=== PATIENT | female | born 1990 | race Caucasian/White ===

== ENCOUNTER 2018-05-04 19:20 | Observation (INO) | payer MEDICAID ==
--- NOTE | 2018-05-04 19:35 | EDPHY ---
H & P Stated Complaint: Back cramps, leg cramps, generalized redness on body and face Time Seen by Provider: 05/04/18 19:34 - Personal History LMP (Females 10-55): Current Tetanus Diphtheria and Acellular Pertussis (TDAP): Yes Tetanus Vaccine Date: 2017 - Medical/Surgical History Hx Asthma: No Hx Chronic Respiratory Disease: No Hx Diabetes: No Hx Cardiac Disease: No Hx Renal Disease: No Hx Cirrhosis: No Hx Alcoholism: No Hx HIV/AIDS: No Hx Splenectomy or Spleen Trauma: No Other PMH: Opiate recovery, Hep C, Depression, Anxiety - Social History Smoking Status: Current some day smoker Constitutional: Initial Vital Signs Temperature (C) 36.8 C 05/04/18 19:28 Heart Rate 109 H 05/04/18 19:28 Respiratory Rate 18 05/04/18 19:28 Blood Pressure 130/95 H 05/04/18 19:28 O2 Sat (%) 95 05/04/18 19:28 O2 Delivery Mode Room Air Allergies/Adverse Reactions: No Known Allergies Allergy (Unverified 05/04/18 20:42) Home Medications: Medication Instructions Recorded Fiorinal 50-325-40 mg Cap 1 cap PO PRN PRN 05/04/18 Phenergan 25 mg PO Q4H PRN 05/04/18 1 tab PO DAILY 05/04/18 Seroquel 25 mg pe PO HS PRN 05/04/18 Wellbutrin Sr 150 mg PO DAILY 05/04/18 Medical Decision Making ED Course/Re-evaluation: CHIEF COMPLAINT: Skin redness, anxiety HISTORY OF PRESENT ILLNESS: The patient is a 37-week 28 y/o female in opiate recovery with a history of anxiety complaining of skin redness and concern for allergic reaction. She first noticed leg cramping earlier today and began to feel anxious. Symptoms did not improve with drinking water so she opted to go on a walk. When she got back from the walk her face looked red to her in the mirror so she became very concerned she was having an allergic reaction and her anxiety worsened. She denies hives, pruritus, facial swelling, difficulty breathing, difficulty swallowing, fever, urinary symptoms. vomiting. She has a prior history of a Lamictal rash, but no other known allergies. She's had abdominal cramping for several days as well and reports the baby has felt normally active throughout these symptoms. She also mentions that she thinks she may have accidentally taken two doses of 300mg Wellbutrin pills instead of her new dose of 100mg pills. REVIEW OF SYSTEMS: A comprehensive 10 system review of systems is otherwise negative aside from elements mentioned in the history of present illness and medical decision making. PHYSICAL EXAM: HR, BP, O2 Sat, RR. Temp noted General Appearance: Alert, well hydrated, appropriate, and anxious-appearing. Head: Atraumatic without scalp tenderness or obvious injury Eyes: Pupils equal, round, reactive to light and accommodation, EOMI, no trauma , no injection. Nose: Atraumatic, no rhinorrhea, clear. Throat: Mucus membranes moist. Neck: Supple, nontender, no lymphadenopathy. Respiratory: No retractions, no distress, no wheezes, and no accessory muscle use. Lungs are clear to auscultation bilaterally. Cardiovascular: Regular rate and rhythm, no murmurs, rubs, or gallops. Good capillary refill all extremities. Gastrointestinal: Abdomen is soft, nontender, gravid uterus, no masses, no rebound, no guarding, no peritoneal signs. Musculoskeletal: Normal active ROM of all extremities, atraumatic. Neurological: Alert, appropriate, and interactive. The patient has non-focal cranial nerves, motor, sensory, and cerebellar exam. Jittery, unable to sit still. Skin: No rashes, good turgor, no nodules on palpation. Past medical history: Opiate recovery - Subutex, hepatitis C, depression - Wellbutrin, anxiety - Fioricet Past surgical history: Noncontributory Family history: Noncontributory Social history: Lives in [place]. Not employed. Single. DIAGNOSTICS/PROCEDURES/CRITICAL CARE TIME: Tomography performed upstairs with L&D. DIFFERENTIAL DIAGNOSIS: The differential diagnosis for the patient's symptoms included but was not limited to anxiety, substance use, allergic reaction, infectious process, electrolyte abnormality, neurologic process, anemia, cardiac process, and intoxicants. MEDICAL DECISION MAKING: This is an anxious-appearing 37-week 28 y/o female who presents with concern for an allergic reaction after she noticed flushing in the mirror this afternoon. She is jittery and seems unable to lie still during assessment, but otherwise has an unremarkable exam. Suspect symptoms are most likely anxiety driven. She was mildly tachycardic in triage and her BP was elevated somewhat at 130/95. I think this is more likely due to her anxiety than preeclampsia. Will treat with 1mg PO Ativan and continue to follow. L&D floor will repeat BP in a few hours after completing US to determine if she meets criteria for preeclampsia treatment. ISTAT and UA ordered. Labs unremarkable. Patient will be discharged to L&D for tomography and follow up on her BP. - Data Points Laboratory Results: 05/04/18 05/04/18 20:10 19:53 POC Hgb 12.9 gm/dL gm/dL (12.6-16.3) POC Hct 38 % % (38-47) POC Sodium 139 mEq/L mEq/L (135-145) POC Potassium 3.6 mEq/L mEq/L (3.3-5.0) POC Chloride 106 mEq/L mEq/L (97-110) POC BUN 10 mg/dL mg/dL (7-23) POC Creatinine 0.9 mg/dL mg/dL (0.6-1.0) POC Glucose 94 mg/dL mg/dL (70-100) Urine Color YELLOW Urine Appearance CLEAR Urine pH 6.0 (5.0-7.5) Ur Specific Polk 1.018 (1.002-1.030) Urine Protein NEGATIVE (NEGATIVE) Urine Ketones NEGATIVE (NEGATIVE) Urine Blood NEGATIVE (NEGATIVE) Urine Nitrate NEGATIVE (NEGATIVE) Urine Bilirubin NEGATIVE (NEGATIVE) Urine Urobilinogen NEGATIVE EU EU (0.2-1.0) Ur Leukocyte Esterase TRACE H (NEGATIVE) Urine RBC 1-3 /hpf /hpf (0-3) Urine WBC 1-3 /hpf /hpf (0-3) Ur Epithelial Cells TRACE /lpf /lpf (NONE-1+) Urine Bacteria TRACE /hpf H /hpf (NONE SEEN) Urine Glucose NEGATIVE (NEGATIVE) Medications Given: Discontinued Medications Lorazepam (Ativan) 1 mg PO EDNOW ONE Stop: 05/04/18 19:43 Last Admin: 05/04/18 19:48 Dose: 1 mg Point of Care Test Results: Chemistry 05/04/18 19:53 POC Sodium 139 mEq/L mEq/L (135-145) POC Potassium 3.6 mEq/L mEq/L (3.3-5.0) POC Chloride 106 mEq/L mEq/L (97-110) POC BUN 10 mg/dL mg/dL (7-23) POC Creatinine 0.9 mg/dL mg/dL (0.6-1.0) POC Glucose 94 mg/dL mg/dL (70-100) ISTAT H&H 05/04/18 19:53 POC Hgb 12.9 gm/dL gm/dL (12.6-16.3) POC Hct 38 % % (38-47) Departure - Departure Disposition: Home, Routine, Self-Care Clinical Impression: Anxiety Condition: Good Instructions: [facility]/L&D Antepartum Care Instructions, Anxiety (ED) Additional Instructions: Follow up with your OBGYN this week. Return for worsening of condition. CONTINUE TO DRINK 3 LITERS OF WATER DAILY. REST NEEDED. CALL OB WITH CONCERNS /QUESTIONS. FOLLOW UP W/ OB DOCTOR TOMORROW. SUGGESTIONS FOR MENTAL HEALTH: ASK OB ABOUT REFERRALS WITHIN [facility] (KEEP TRYING TO GET SEEN) [facility] (DR CHISHOLM SUGGESTED CALLING HERE) Referrals: Matilde Walls MD [Medical Doctor] - As per Instructions Report Scribed for: Palmer Hollingsworth Report Scribed by: Corina Good Date of Report: 05/04/18 Time of Report: 20:30
[2018-05-04] MEDS ORDERED: LORazepam 1 MG TAB PO ONE (19:42)
[2018-05-04 19:58] VITALS: BP 133/82
--- NOTE | 2018-05-05 03:58 | OBPROG ---
Labor Progress Note Assessment/Plan: Assessment: IUP at 36+wks decreased FM reported to ER, was evaluated in ER for rash sent to Labor and Delivery Plan: reactive NST and better FM after IV hydration,DC home 05/05/18 03:52 Subjective/Intrapartum Course: 05/05/18 03:54 Per RN, Pt anxious after busy day with active hike, baby shower, dehydration with feeling exhausted with increased cramping, SOB, emesis, headache. all symptoms improved after relaxation and oral hydration. Objective: Temp Pulse Resp BP Pulse Ox 36.8 C 93 18 133/82 H 93 05/04/18 19:28 05/04/18 19:58 05/04/18 19:58 05/04/18 19:58 05/04/18 19:58 - SVE Membranes: Intact - Contraction Pattern Assessment Current Contraction Pattern: Other (Specify) (occas) - FHR Assessment Wagoner FHR (bpm): 130 FHR Pattern Variability: Moderate FHR Category: 1 (reactive NST with accels, GBTBV, no decels) ICD10 Worksheet Patient Problems: Problems Problem Status Onset Anxiety Acute Decreased movement Acute - ICD10 Problem Qualifiers (1) Decreased movement
== END 2018-05-04 21:59 | disposition home or self-care (01) ==
LOC: FLD 20:20
PROVIDERS: ADMIT Obstetrics & Gynecology; ATTEND Obstetrics & Gynecology
DX: O99.89 Other specified diseases and conditions complicating pregnancy, childbirth and the puerperium (principal); F41.9 Anxiety disorder, unspecified; R21 Rash and other nonspecific skin eruption; Z3A.37 37 weeks gestation of pregnancy
CPT/HCPCS: 82435-PO; 82565-PO; 82947-PO; 84132-PO; 84295-PO; 84520-PO; 85014-ER

== ENCOUNTER → 2018-05-12 | Outpatient (CLI) | payer MEDICAID | LOC: FIMAGING 13:45 | PROVIDERS: ATTEND Obstetrics & Gynecology | DX: O98.413 Viral hepatitis complicating pregnancy, third trimester (principal); O99.323 Drug use complicating pregnancy, third trimester; B19.20 Unspecified viral hepatitis C without hepatic coma; F11.20 Opioid dependence, uncomplicated; Z3A.37 37 weeks gestation of pregnancy ==

== ENCOUNTER 2018-05-16 16:49 | Inpatient (IN) | payer MEDICAID ==
[2018-05-16 18:21] LABS: PLATELET COUNT 181 10^3/uL (150-400)
[2018-05-16] MEDS ORDERED: LORazepam 2 MG/ML INJ IVP PRN (18:57)
[2018-05-16] MEDS ORDERED: LORazepam 2 MG/ML INJ IVP ONE (19:15)
[2018-05-16] MEDS ORDERED: EPSOM SALT 454 GM TP PRN (19:23)
[2018-05-16] MEDS ORDERED: MISOPROSTOL 200 MCG TAB PR PRN (19:23)
[2018-05-16] MEDS ORDERED: OXYTOCIN/RINGERS LACTATE 1,000 ML IV PRN (19:23)
[2018-05-16] MEDS ORDERED: IBUPROFEN 600 MG TAB PO PRN (19:23)
[2018-05-16] MEDS ORDERED: LR 1,000 ML IV PRN (19:23)
[2018-05-16] MEDS ORDERED: LIDOCAINE 1% 300 MG/30 ML SDV SC PRN (19:23)
[2018-05-16] MEDS ORDERED: OLIVE OIL 118 ML BTL MISC PRN (19:23)
[2018-05-16] MEDS ORDERED: DINOPROSTONE 10 MG VAG SUPP VG ONE (21:40)
[2018-05-16] MEDS: ZOLPIDEM TARTRATE 5 MG TAB PO PRN ×2 (22:14→23:05)
[2018-05-16] MEDS ORDERED: CALCIUM CARBONATE 500 MG CHEWABLE TAB PO PRN (22:17)
--- NOTE | 2018-05-16 23:11 | GHP ---
[f rep st] PREOP HISTORY AND PHYSICAL DATE OF ADMISSION: 05/16/2018 ADMITTING DIAGNOSIS: Intrauterine at 38 and 2/7 weeks' gestation with preeclampsia. HISTORY OF PRESENT ILLNESS: The patient is a 27-year-old 1, para 0, who is at 38 and 2/7 wee ks' gestation with an EDC of 05/28/2018. She presented to Labor and Delivery complaining of severe a nxiety and elevated blood pressure. She complained of headaches earlier today and some episodes of b lurred vision and spots in her vision. She has Fioricet, and she took the Fioricet earlier today. S he said her headache improved, but she continued to have severe anxiety and panic attack symptoms. S he has a blood pressure cuff at home and took her blood pressure, and it was in the 150s over 100 ran ge. She is not sure of the accuracy of that blood pressure cuff, but she was very concerned about th e health of her baby and what was going on. She presented to Labor and Delivery. Patient has had so me care with [facility], Dr. Walls; however, she was a late transfer there. She reports that her first trimester care was in [place], where she was living. She has a history of polys ubstance abuse, was in recovery, had a remission in January of 2018 with both methamphetamine as well as opioids and was admitted to an inpatient detox facility in [place]. She had her care there. Was started on Subutex as well as antidepressants and has stayed away from drugs since January. She was discharged from the inpatient rehab facility and established care at [facility]. She is living at [facility] and started her care with [facility]. She is on gabapentin 600 mg 3 felisha es daily, Subutex 800 mg sublingual daily, as well as Wellbutrin 200 mg daily, and Seroquel p.r.n. sl eep. She feels that the Wellbutrin is making her incredibly anxious and manic. She is unable to sit still, unable to calm down, and has been unable to sleep for the past 4 nights. She says she is exh austed but very anxious. She feels that her elevated blood pressure is as a result of her anxiety an d her difficulties with the Wellbutrin. The patient's is also complicated by hepatitis C w ith an unknown viral load. PAST OBSTETRICAL HISTORY: This is her first . PAST GYNECOLOGICAL HISTORY: None significant that she admits to. Last menstrual period was 08/22/19 18. EDC is 05/28/2018, confirmed by a 32 week ultrasound on file here. We do not have her records [facility]. PAST MEDICAL HISTORY: Significant for hepatitis C, significant depression and anxiety, and meth and opioid use. PAST SURGICAL HISTORY: No significant surgical history. SOCIAL HISTORY: Father of the baby is not involved. She says that he also is a drug user. She admi ts to vaping tobacco. No alcohol or drug use since her relapse in January. She is currently on Subu alejandro and has frequent drug screen monitoring. She had a level [address] Jeong on 05/12/2018. Baby was 37 weeks and 5 days, measuring 3306 g or 62nd percentile. Anatomy was normal but often was suboptimal. Baby cephalic. MVP was 7. 8. Ovaries are normal. OBJECTIVE: VITAL SIGNS: Her blood pressures were 130s to 150s over 70s to 99. Majority of her bloo d pressures were 130s over 80s. GENERAL: She is a well-developed, gravid female, very anxious, in m ild distress because of her anxiety but no pain. CHEST: Clear to auscultation bilaterally. HEART: Regular rate and rhythm, no murmur. ABDOMEN: Gravid, nontender. OB: heart tones are 130s, reactive, moderate variability, category 1. She is val irregularly. Cervix is closed, 80%, -2. Baby is cephalic. LABS: White blood cell count is 12.02, hemoglobin 13.3, hematocrit 38, platelets 181. BUN 13, creat inine 0.7, uric acid 5.3, AST 40, ALT 33, LDH 697. Her urine creatinine was 24.1, protein 13, giving a P:C ratio of 0.53. Urine tox was positive for barbiturates. The patient does admit to Fioricet u this morning. Her hepatitis C viral load is pending. ASSESSMENT AND PLAN: A 28-year-old 1, para 0, at 38 and 2/7 weeks gestation with hypertensio n, proteinuria, diagnosis of preeclampsia without severe features, and severe anxiety. We will proce ed with induction of labor today. I am going to do cervical ripening with Cervidil, but also, I gave her 1 dose of Ativan to try to calm her down and gave her a dose of p.o. Ambien to help her sleep to night because she has not slept in 4 days. We will reassess her cervical exam in the morning and hop efully start Pitocin. 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 /[id number]/MODL
[2018-05-17] MEDS: GABAPENTIN 400 MG CAP PO SCH ×3 (01:24→16:47)
[2018-05-17] MEDS: ACETAMINOPHEN 500 MG TAB PO PRN ×3 (03:50→21:03)
[2018-05-17] MEDS ORDERED: OLIVE OIL 118 ML BTL ONE (07:35)
[2018-05-17] MEDS ORDERED: AMMONIA AROMATIC 1 EACH AMP IH ONE (07:35)
[2018-05-17] MEDS ORDERED: LIDOCAINE 1% 300 MG/30 ML SDV ONE (07:35)
[2018-05-17] MEDS ORDERED: TERBUTALINE SULFATE 1 MG/ML VIAL ONE (07:35)
[2018-05-17] MEDS ORDERED: OXYTOCIN 10 UNIT/ML VIAL ONE (07:35)
[2018-05-17] MEDS ORDERED: MISOPROSTOL 200 MCG TAB ONE (07:35)
--- NOTE | 2018-05-17 08:39 | OBPROG ---
Labor Progress Note Assessment/Plan: Assessment: 28 G1 at 38w3d, undergoing IOL for preeclampsia without severe features. Currently BPs stable. Hx of polysubstance abuse - meth and opioids most recently - currently on suboxone/ depression / Hep C + [facility] Plan: Cervidil placed about 2200 -will remove 1000 unless reason to remove and check cervix prior to that. Will assess at that time for next step in induction. Caity Zavaleta MD, FACOG [facility] 05/17/18 08:32 Subjective/Intrapartum Course: 05/17/18 08:39 Pt doing well, was able to get some sleep, but is becoming agitated with discomfort of contractions. No LOF, no VB. Currently, no MIKE, epigastric pain, vis changes. Objective: 05/16/18 17:45 05/16/18 17:45 Patient ABO/Rh O POSITIVE 05/16/18 20:09 Uric Acid 5.3 mg/dL (2.5-6.8) 05/16/18 17:45 Total Bilirubin 0.1 mg/dL (0.1-1.4) 05/16/18 17:45 Conjugated Bilirubin 0.1 mg/dL (0.0-0.5) 05/16/18 17:45 Unconjugated Bilirubin 0.0 mg/dL (0.0-1.1) 05/16/18 17:45 AST 40 IU/L (14-46) 05/16/18 17:45 ALT 33 IU/L (9-52) 05/16/18 17:45 Lactate Dehydrogenase 697 IU/L (313-618) H 05/16/18 17:45 gen - pleasant but uncomfortable. - Contraction Pattern Assessment Current Contraction Pattern: Regular (q1-3) - FHR Assessment Wagoner FHR (bpm): 125 FHR Pattern Variability: Moderate FHR Category: 1 - Physical Exam General Appearance: alert, mild distress Oxytocin Orders Assessment - Pre-Induction/Augmentation Assessment Gestational Age: 38 week(s) and 2 day(s) ICD10 Worksheet Patient Problems: Problems Problem Status Onset Preeclampsia Acute Anxiety Acute Decreased movement Acute - ICD10 Problem Qualifiers (1) Preeclampsia Qualifiers: Trimester: third trimester Qualified Code(s): O14.93 - Unspecified pre- eclampsia, third trimester
[2018-05-17] MEDS: buPROPion XL 150 MG TAB PO SCH (09:04)
[2018-05-17] MEDS ORDERED: BUPRENORPHINE HCL SL SCH (09:45)
[2018-05-17] MEDS ORDERED: fentaNYL 100 MCG/2 ML INJ ONE (11:51)
[2018-05-17] MEDS ORDERED: fentaNYL 2MCG/ML/BUP 0.1% RTU 100 ML BAG EP ONE (11:52)
[2018-05-17] MEDS ORDERED: PHENYLEPHRINE HCL 100 MCG/ML SYR ONE (11:52)
[2018-05-17] MEDS ORDERED: BUPIVACAINE 0.25% 10 ML SDV ONE (11:52)
--- NOTE | 2018-05-17 12:32 | PDANEPAE ---
ANE History of Present Illness near term with some s/s of PIH in early labor requesting epidural. ANE Past Medical History - Cardiovascular History Hx Hypertension: No - Pulmonary History Hx Asthma/Reactive Airway Disease: No Hx Oxygen in Use at Home: No Hx Sleep Apnea: No - Endocrine History Hx Diabetes: No - Neurological & Psychiatric Hx Neurological / Psychiatric History Comment: Hstory of drug abuse - Chronic Pain History Chronic Pain: No ANE Review of Systems Review of Systems: ANE Patient History - Allergies Allergies/Adverse Reactions: No Known Allergies Allergy (Unverified 05/04/18 20:42) - Home Medications Home Medications: Fiorinal 50-325-40 mg Cap 1 cap PO PRN PRN 05/04/18 [Last Taken 04/30/18] Phenergan 25 mg PO Q4H PRN 05/04/18 [Last Taken 05/03/18] 1 tab PO DAILY 05/04/18 [Last Taken 05/04/18 08:00] Seroquel 25 mg pe PO HS PRN 05/04/18 [Last Taken 05/02/18] Wellbutrin Sr 150 mg PO DAILY 05/04/18 [Last Taken 05/04/18 14:00] Buprenorphine HCl 4 mg SL DAILY 05/17/18 [Last Taken Unknown] - Anes Hx Anes Hx: no prior problems (No prior RA) - Smoking Hx Smoking Status: Current some day smoker ANE Labs/Vital Signs - Labs Result Diagrams: 05/16/18 17:45 05/16/18 17:45 - Vital Signs Height: 162.56 cm Weight: 69.853 kg ANE Physical Exam - Airway Neck exam: FROM Mallampati Score: Class 2 Mouth exam: normal dental/mouth exam - Pulmonary Pulmonary: no respiratory distress - Cardiovascular Cardiovascular: regular rate and rhythym - ASA Status ASA Status: II ANE Anesthesia Plan Anesthesia Plan: epidural
--- NOTE | 2018-05-17 12:51 | OBPROG ---
Labor Progress Note Assessment/Plan: Assessment: 28 G1 at 38w3d, undergoing IOL for preeclampsia without severe features. Currently BPs stable. Hx of polysubstance abuse - meth and opioids most recently - currently on suboxone/ depression / Hep C + / [facility] at [facility] Plan: Cervidil placed about 2200 -will remove 1000 unless reason to remove and check cervix prior to that. Will assess at that time for next step in induction. Assumed care from Dr. Vang at 0730. Caity Zavaleta MD, FACOG [facility] 05/17/18 08:32 A/P: 28 G1 at 38w3d 1)undergoing IOL with preeclampsia without severe features. BPs stable, no other symptoms of preeclampsia. Epidural in place now and effective. Cephalic - will start pitocin induction now that pt is comfortable too. 2) Hx of polysubstance abuse, including IV methamphetamine use during this . Has been on suboxone for opiod dependence - today was given only buprenorphine (not with naloxone) so it won't counteract narcotics in epidural. 3) With IV drug abuse this , and the only records available, show one visit and one MFM visit - will repeat panel, including HepB, RPR, HIV. 4) Hep C - viral loads still pending. Normal LFTs. Caity Zavaleta MD, FACOG 05/17/18 12:48 Subjective/Intrapartum Course: 05/17/18 08:39 Pt doing well, was able to get some sleep, but is becoming agitated with discomfort of contractions. No LOF, no VB. Currently, no MIKE, epigastric pain, vis changes. 05/17/18 12:50 Pt much happier now, comfortable with epidural. NO MIKE, no vis changes, no epigastric pain. Objective: 05/16/18 17:45 05/16/18 17:45 Patient ABO/Rh O POSITIVE 05/16/18 20:09 Uric Acid 5.3 mg/dL (2.5-6.8) 05/16/18 17:45 Total Bilirubin 0.1 mg/dL (0.1-1.4) 05/16/18 17:45 Conjugated Bilirubin 0.1 mg/dL (0.0-0.5) 05/16/18 17:45 Unconjugated Bilirubin 0.0 mg/dL (0.0-1.1) 05/16/18 17:45 AST 40 IU/L (14-46) 05/16/18 17:45 ALT 33 IU/L (9-52) 05/16/18 17:45 Lactate Dehydrogenase 697 IU/L (313-618) H 05/16/18 17:45 36.9 96% on RA 64 143/81 (119-143/62-87) abd - gravid, soft NT SSE: cervix appears 2cm long and 1 m open. With sterile technique, transcervical balloon catheter placed with ring forceps - uterine balloon filled with 60ml, vaginal with 20 ml. Pt tolerated procedure well. - SVE Dilation (cm): 1 Effacement (%): 80 Station: -3 Membranes: Intact - Contraction Pattern Assessment Current Contraction Pattern: Regular (q1-3) - FHR Assessment Wagoner FHR (bpm): 125 FHR Pattern Variability: Moderate FHR Category: 1 (transcervical balloon catheter placed) - Procedures Non-surgical Procedures: Other (Specify) (Transcervical Cook balloon catheter placed using a speculum and ring forceps in standard fashion. 60 ml in uterine balloon, 20 ml in vaginal balloon - pt tolerated procedure well. ) Oxytocin Orders Assessment - Pre-Induction/Augmentation Assessment Presentation: Vertex Gestational Age: 38 week(s) and 2 day(s) ICD10 Worksheet Patient Problems: Problems Problem Status Onset Preeclampsia Acute Anxiety Acute Decreased movement Acute - ICD10 Problem Qualifiers (1) Preeclampsia Qualifiers: Trimester: third trimester Qualified Code(s): O14.93 - Unspecified pre- eclampsia, third trimester
[2018-05-17] MEDS ORDERED: LR 500 ML IV SCH (13:00)
[2018-05-17] MEDS ORDERED: fentaNYL 2MCG/ML/BUP 0.1% RTU 100 ML EP SCH (13:00)
[2018-05-17] MEDS ORDERED: LR 500 ML IV PRN (13:01)
[2018-05-17] MEDS ORDERED: BUPRENORPHINE HCL 8 MG SL SCH (13:02)
[2018-05-17] MEDS ORDERED: OXYTOCIN/RINGERS LACTATE 500 ML IV SCH (13:30)
--- NOTE | 2018-05-17 16:57 | OBPROG ---
Labor Progress Note Assessment/Plan: Assessment: 28 G1 at 38w3d, undergoing IOL for preeclampsia without severe features. Currently BPs stable. Hx of polysubstance abuse - meth and opioids most recently - currently on suboxone/ depression / Hep C + / lives at [facility] Plan: Cervidil placed about 2200 -will remove 1000 unless reason to remove and check cervix prior to that. Will assess at that time for next step in induction. Assumed care from Dr. Vang at 0730. Caity Zavaleta MD, FACOG [facility] 05/17/18 08:32 A/P: 28 G1 at 38w3d 1)undergoing IOL with preeclampsia without severe features. BPs stable, no other symptoms of preeclampsia. Epidural in place now and effective. Cephalic - will start pitocin induction now that pt is comfortable too. 2) Hx of polysubstance abuse, including IV methamphetamine use during this . Has been on suboxone for opiod dependence - today was given only buprenorphine (not with naloxone) so it won't counteract narcotics in epidural. 3) With IV drug abuse this , and the only records available, show one visit and one MFM visit - will repeat panel, including HepB, RPR, HIV. 4) Hep C - viral loads still pending. Normal LFTs. Caity Zavaleta MD, FACOG 05/17/18 12:48 A/P: 28 G1 at 38w2d 1) IOL for preeclampsia without severe features. SROM at 1415. BPs not in severe range. Seems to have window in epidural causing LLQ discomfort with contractions. Will attempt position changes to get window covered. 2) Early heart rate decelerations, remote from delivery - Cont IVF, O2, and optimization with position changes. IUPC placed, would prefer to avoid FSE due to Hep C in pt. 3) IV/polysubstance abuse - received buprenophine this morning, HIV, hep B, RPR pending. 4) Hep C - viral loads still pending. 05/17/18 16:46 Subjective/Intrapartum Course: 05/17/18 08:39 Pt doing well, was able to get some sleep, but is becoming agitated with discomfort of contractions. No LOF, no VB. Currently, no MIKE, epigastric pain, vis changes. 05/17/18 12:50 Pt much happier now, comfortable with epidural. NO MIKE, no vis changes, no epigastric pain. 05/17/18 17:06 Pt doing well, though having some high anxiety, as has a window of pain in LLQ currently not covered by epidural. Wants to try some guided meditation. Objective: 05/16/18 17:45 05/16/18 17:45 Patient ABO/Rh O POSITIVE 05/16/18 20:09 Uric Acid 5.3 mg/dL (2.5-6.8) 05/16/18 17:45 Total Bilirubin 0.1 mg/dL (0.1-1.4) 05/16/18 17:45 Conjugated Bilirubin 0.1 mg/dL (0.0-0.5) 05/16/18 17:45 Unconjugated Bilirubin 0.0 mg/dL (0.0-1.1) 05/16/18 17:45 AST 40 IU/L (14-46) 05/16/18 17:45 ALT 33 IU/L (9-52) 05/16/18 17:45 Lactate Dehydrogenase 697 IU/L (313-618) H 05/16/18 17:45 gen - pleasant but anxious appearing. SVE - 3/ 80/ -3 IUPC placed without difficulty. - SVE Dilation (cm): 3 Effacement (%): 80 Station: -3 Membranes: SROM (at 1415) Amniotic Fluid Color: Clear - Contraction Pattern Assessment Current Contraction Pattern: Regular (q1-3) - FHR Assessment Wagoner FHR (bpm): 125 (early heart rate decelerations to 90s) FHR Pattern Variability: Moderate FHR Category: 2 - Procedures Non-surgical Procedures: IUPC, Other (Specify) (Transcervical Cook balloon catheter placed using a speculum and ring forceps in standard fashion. 60 ml in uterine balloon, 20 ml in vaginal balloon - pt tolerated procedure well. ) - AP Antepartum Course: Pt diagnosed with preeclampsia without severe features due to elevated BPs and proteinuria (P/C = 0.539). Induction started at 2200 on 05/16/18 with Cervidil. 05/17/18 - cervidil removed at 1000, 1415 SROM clear fluid 1615 transcervical balloon catheter removed 1635 IUPC placed, early FHR decelerations noted. 02/03/19 17:09 Oxytocin Orders Assessment - Pre-Induction/Augmentation Assessment Presentation: Vertex Gestational Age: 38 week(s) and 2 day(s) ICD10 Worksheet Patient Problems: Problems Problem Status Onset Preeclampsia Acute Anxiety Acute Decreased movement Acute - ICD10 Problem Qualifiers (1) Preeclampsia Qualifiers: Trimester: third trimester Qualified Code(s): O14.93 - Unspecified pre- eclampsia, third trimester
--- NOTE | 2018-05-17 17:56 | OBPROG ---
Labor Progress Note Assessment/Plan: Assessment: 29 G1 at 38w3d, undergoing IOL for preeclampsia without severe features. Currently BPs stable. Hx of polysubstance abuse - meth and opioids most recently - currently on suboxone/ depression / Hep C + / lives at [facility] Plan: Cervidil placed about 2200 -will remove 1000 unless reason to remove and check cervix prior to that. Will assess at that time for next step in induction. Assumed care from Dr. Vang at 0730. Caity Zavaleta MD, FACOG [facility] 05/17/18 08:32 A/P: 29 G1 at 38w3d 1)undergoing IOL with preeclampsia without severe features. BPs stable, no other symptoms of preeclampsia. Epidural in place now and effective. Cephalic - will start pitocin induction now that pt is comfortable too. 2) Hx of polysubstance abuse, including IV methamphetamine use during this . Has been on suboxone for opiod dependence - today was given only buprenorphine (not with naloxone) so it won't counteract narcotics in epidural. 3) With IV drug abuse this , and the only records available, show one visit and one MFM visit - will repeat panel, including HepB, RPR, HIV. 4) Hep C - viral loads still pending. Normal LFTs. Caity Zavaleta MD, FACOG 05/17/18 12:48 A/P: 29 G1 at 38w2d 1) IOL for preeclampsia without severe features. SROM at 1415. BPs not in severe range. Seems to have window in epidural causing LLQ discomfort with contractions. Will attempt position changes to get window covered. 2) Early heart rate decelerations, remote from delivery - Cont IVF, O2, and optimization with position changes. IUPC placed, would prefer to avoid FSE due to Hep C in pt. 3) IV/polysubstance abuse - received buprenophine this morning, HIV, hep B, RPR pending. 4) Hep C - viral loads still pending. 05/17/18 16:46 05/17/18 17:54 A/P: as above, now 9.5 cm. Anticipate vag delivery - will start pushing soon. Caity Zavaleta MD Subjective/Intrapartum Course: 05/17/18 08:39 Pt doing well, was able to get some sleep, but is becoming agitated with discomfort of contractions. No LOF, no VB. Currently, no MIKE, epigastric pain, vis changes. 05/17/18 12:50 Pt much happier now, comfortable with epidural. NO MIKE, no vis changes, no epigastric pain. 05/17/18 17:06 Pt doing well, though having some high anxiety, as has a window of pain in LLQ currently not covered by epidural. Wants to try some guided meditation. 05/17/18 17:54 Pt feeling more pressure. overall better pain control. Objective: 05/16/18 17:45 05/16/18 17:45 Patient ABO/Rh O POSITIVE 05/16/18 20:09 Uric Acid 5.3 mg/dL (2.5-6.8) 05/16/18 17:45 Total Bilirubin 0.1 mg/dL (0.1-1.4) 05/16/18 17:45 Conjugated Bilirubin 0.1 mg/dL (0.0-0.5) 05/16/18 17:45 Unconjugated Bilirubin 0.0 mg/dL (0.0-1.1) 05/16/18 17:45 AST 40 IU/L (14-46) 05/16/18 17:45 ALT 33 IU/L (9-52) 05/16/18 17:45 Lactate Dehydrogenase 697 IU/L (313-618) H 05/16/18 17:45 - SVE Dilation (cm): 9 Effacement (%): 100 Station: 0 Membranes: SROM (at 1415) Amniotic Fluid Color: Clear - Contraction Pattern Assessment Current Contraction Pattern: Regular (q1-3) - FHR Assessment Wagoner FHR (bpm): 115 (. PItocin turned off. ) FHR Pattern Variability: Moderate FHR Category: 2 - Procedures Non-surgical Procedures: IUPC, Other (Specify) (Transcervical Cook balloon catheter placed using a speculum and ring forceps in standard fashion. 60 ml in uterine balloon, 20 ml in vaginal balloon - pt tolerated procedure well. ) - AP Antepartum Course: Pt diagnosed with preeclampsia without severe features due to elevated BPs and proteinuria (P/C = 0.539). Induction started at 2200 on 05/16/18 with Cervidil. 05/17/18 - cervidil removed at 1000, 1415 SROM clear fluid 1615 transcervical balloon catheter removed 1635 IUPC placed, early FHR decelerations noted. 05/17/18 17:09 Oxytocin Orders Assessment - Pre-Induction/Augmentation Assessment Presentation: Vertex Gestational Age: 38 week(s) and 2 day(s) ICD10 Worksheet Patient Problems: Problems Problem Status Onset Preeclampsia Acute Anxiety Acute Decreased movement Acute - ICD10 Problem Qualifiers (1) Preeclampsia Qualifiers: Trimester: third trimester Qualified Code(s): O14.93 - Unspecified pre- eclampsia, third trimester
[2018-05-17] MEDS ORDERED: HYDROCORTISONE 0.5% CREAM TP PRN (21:30)
[2018-05-17] MEDS ORDERED: SIMETHICONE 80 MG TAB CHEW PO PRN (21:30)
--- NOTE | 2018-05-17 21:39 | OBDEL ---
Info Type: Vaginal Presentation at Delivery: Vertex L&D Analgesia/Anesthesia Type: Epidural GBS+: No Intrapartum Medications: Generic Name Dose Route Start Last Admin Trade Name Betty PRN Reason Stop Dose Admin Bupropion HCl 150 mg 05/17/18 09:00 05/17/18 09:04 Wellbutrin Xl PO 11/13/18 08:59 150 mg DAILY LYNNE Administration Calcium Carbonate 500 mg 05/16/18 22:17 05/16/18 23:03 Tums PO 11/12/18 22:16 500 mg TID PRN Administration Indigestion Gabapentin 400 mg 05/16/18 23:00 05/17/18 16:47 Neurontin PO 11/12/18 22:59 Not Given TID LYNNE Oxytocin/Lactated Ringer's 500 mls @ 0 mls/hr 05/17/18 13:30 05/17/18 13:14 Pitocin 30 Units/Lr (Premix) IV 11/13/18 13:29 500 mls CONT LYNNE Administration Protocol Per Protocol Miscellaneous Medication 16 mg 05/17/18 13:02 05/17/18 12:00 Buprenorphine Hcl [Buprenorphine Hcl] SL 11/13/18 09:44 16 mg DAILY LYNNE Administration Cambridge Oil 118 ml 05/16/18 19:23 05/17/18 20:11 Sweet Oil MISC 11/12/18 19:22 1 btl ONCE PRN Administration perineal massage Discontinued Medications Generic Name Dose Route Start Last Admin Trade Name Betty PRN Reason Stop Dose Admin Acetaminophen 1,000 mg 05/16/18 22:17 05/17/18 21:03 Tylenol PO 11/12/18 22:16 1,000 mg Q6HRS PRN Administration Pain, Mild/Fever, Can Take PO Dinoprostone 10 mg 05/16/18 21:40 05/16/18 22:10 Cervidil VG 05/16/18 21:41 10 mg ONCE ONE Administration Oxytocin/Lactated Ringer's 1,000 mls @ 125 mls/hr 05/16/18 19:23 05/17/18 20: 58 Pitocin 20 Units/Lr (Premix) IV 1,000 mls PRN PRN Administration Post bleeding Ibuprofen 600 mg 05/16/18 19:23 05/17/18 21:04 Motrin PO 600 mg ONCE PRN Administration post , pain Lorazepam 1 mg 05/16/18 19:15 05/16/18 20:10 Ativan Injection IVP 05/16/18 19:16 1 mg ONCE ONE Administration Zolpidem Tartrate 5 - 10 mg 05/16/18 18:57 05/16/18 23:05 Ambien PO 11/12/18 18:56 5 mg HS PRN Administration Sleep/Insomnia - Infant Care Provider Chief Hydroelectric Station Operator/SHEET [employer]CT WORKER SUPERVISOR: Dana Pete - Hospital Course Intrapartum: 05/17/18 08:39 Pt doing well, was able to get some sleep, but is becoming agitated with discomfort of contractions. No LOF, no VB. Currently, no MIKE, epigastric pain, vis changes. 05/17/18 12:50 Pt much happier now, comfortable with epidural. NO MIKE, no vis changes, no epigastric pain. 05/17/18 17:06 Pt doing well, though having some high anxiety, as has a window of pain in LLQ currently not covered by epidural. Wants to try some guided meditation. 05/17/18 17:54 Pt feeling more pressure. overall better pain control. Indications for Delivery: Preeclampsia Mild Vaginal Delivery - Delivery Provider Delivery Physician/CNM: Caity Zavaleta - Labor and Delivery Onset of Contractions Date: 05/17/18 Onset of Contractions Time: 16:30 Onset of Contractions Type: Induced Rupture of Membranes Date: 05/17/18 Rupture of Membranes Time: 14:15 Rupture of Membranes Type: Spontaneous Amniotic Fluid Color: Clear Dilation Complete Date: 05/17/18 Dilation Complete Time: 18:28 Placenta Delivery Date: 05/17/18 Placenta Delivery Time: 20:15 Total Hours of Labor: 3 Non-surgical Procedures: IUPC, Other (Specify) (Transcervical Cook balloon catheter placed using a speculum and ring forceps in standard fashion. 60 ml in uterine balloon, 20 ml in vaginal balloon - pt tolerated procedure well. ) Laceration: 1st Degree Repair: 3-0, Vicryl Vaginal Sponge Count Correct: Yes Vaginal Needle Count Correct: Yes Vaginal Sweep Performed: Yes EBL: 250 Delivery Events: None Delivery Comment: Pt complete at 1828 and started pushing shortly after that. Spontaneous vaginal delivery at 2012, over intact perineum, KYLIE. Bulb suctioned on perineum. Easy delivery of body and baby delivered to maternal abdomen. 1 min delay of cord clamping. Cord cut. Placenta delivered at 2014 and appeared intact. 1st deg lac noted and repaired with 3.0 Vicryl. Vaginal sweep performed. Fundus firm with massage and IV pitocin. Sponge and needle counts correct. SHEET METAL DUCT WORKER SUPERVISOR was in attendance for delivery. Pt and left stable in room with RN. - Medications Labor Augmentation/Induction Methods Used: Pitocin, Sanchez Bulb, Cervadil Labor Augmentation/Induction Indication: Other (Specify) (preeclampsia) Data CHERYL: 05/28/18 Gestational Age: 38 week(s) and 3 day(s) Wagoner Delivery Date: 05/17/18 Delivery Time: 20:13 Sex of : Male Score (1 Min): 8 Score (5 Min): 9 ICD10 Worksheet Patient Problems: Problems Problem Status Onset Preeclampsia Acute Anxiety Acute Decreased movement Acute - ICD10 Problem Qualifiers (1) Preeclampsia Qualifiers: Trimester: third trimester Qualified Code(s): O14.93 - Unspecified pre- eclampsia, third trimester
[2018-05-17] MEDS ORDERED: METHYL SALICYLATE/MENTHOL OINTMENT TP PRN (23:01)
[2018-05-18] MEDS: GABAPENTIN 400 MG CAP PO SCH ×3 (01:08→16:30)
[2018-05-18 02:53] LABS: HEPATITIS B SURFACE ANTIGEN NEGATIVE (NEGATIVE)
[2018-05-18] MEDS: ACETAMINOPHEN 500 MG TAB PO PRN ×2 (05:12→14:10)
[2018-05-18] MEDS: IBUPROFEN 600 MG TAB PO PRN ×3 (05:12→18:14)
--- NOTE | 2018-05-18 09:11 | OBPP ---
Progress Note Assessment/Plan: Assessment: PPd1 s/p Pain well controlled - home dose of Suboxone restarted this AM (28/07) Awaiting Hep C viral load and serum STD screening Social work following - appreciate assistance on placement and resources. GBS neg, Rh pos, Rubella immune Told her I was comfortable ordering Ativan PRN for now, and Fioricet. Discussed that SSRI's probably a safer choice, but she reported she's had very bad reactions to many and is not comfortable starting a new med at this time. Conitnuing Wellbutrin. for now. Likely home tomorrow ZAIRA 05/18/18 21:57 Subjective/ Course: Sweta was quite upset and anxious, almost frantic when I spoke with her this AM. She reported that her pain was generally doing fine, baby was doing well - BF going well. She just in general was feeling very overwhelmed and anxious -- very worried about managing her anxiety in the coming weeks. Requesting Ativan PRN, and Fioricet. Objective: 05/18/18 05:25 05/16/18 17:45 Patient ABO/Rh O POSITIVE 05/16/18 20:09 Uric Acid 5.3 mg/dL (2.5-6.8) 05/16/18 17:45 Total Bilirubin 0.1 mg/dL (0.1-1.4) 05/16/18 17:45 Conjugated Bilirubin 0.1 mg/dL (0.0-0.5) 05/16/18 17:45 Unconjugated Bilirubin 0.0 mg/dL (0.0-1.1) 05/16/18 17:45 AST 40 IU/L (14-46) 05/16/18 17:45 ALT 33 IU/L (9-52) 05/16/18 17:45 Lactate Dehydrogenase 697 IU/L (313-618) H 05/16/18 17:45 Temp Pulse Resp BP Pulse Ox 36.8 C 67 16 115/57 L 95 05/18/18 08:00 05/18/18 08:00 05/18/18 08:00 05/18/18 08:00 05/18/18 08:00 Uterine Position/Fundal Height: At Umbilicus Uterine Tone: Firm
[2018-05-18] MEDS: buPROPion XL 150 MG TAB PO SCH (09:43)
[2018-05-18] MEDS: DOCUSATE SODIUM 100 MG CAP PO PRN ×2 (09:43→22:01)
[2018-05-18] MEDS: LORazepam 0.5 MG TAB PO PRN ×4 (13:16→22:01)
[2018-05-18] MEDS: ACET/CAFFEINE/BUTA FIORICET 1 EACH TAB PO PRN ×2 (16:31→22:01)
--- NOTE | 2018-05-18 16:31 | ASMTCMCOM ---
CM Note CM Note Notes: Patient is a new mother with a history of substance abuse living at [facility] here in [place]. [place] and was in fact speaking with her mother as this CM entered the room. The patient has the on her chest and appears to be bonding well. Spoke with the patient's nurse who reports patient quick to become upset at the cries of . She verbalizes she does not know what to do and is concerned that the infant isn't latching on appropriately just yet. The patient has a great deal of support through the [facility]. She has appointments set up with [facility]. Patient provided with a resource list for depression treatment providers. CM will also reach out to [facility]. CM to follow. Likely to discharge tomorrow. Plan: Dc to [facility] when medically cleared. Date Signed: 05/18/2018 04:30 PM Electronically Signed By:Nicole Mccain RN
[2018-05-19] MEDS: GABAPENTIN 400 MG CAP PO SCH ×2 (03:20→11:23)
[2018-05-19] MEDS: LORazepam 0.5 MG TAB PO PRN ×2 (03:55→10:14)
[2018-05-19] MEDS: buPROPion XL 150 MG TAB PO SCH (07:49)
[2018-05-19] MEDS: ACET/CAFFEINE/BUTA FIORICET 1 EACH TAB PO PRN (07:49)
[2018-05-19] MEDS ORDERED: BUPRENORPHINE HCL SL SCH (09:00)
--- NOTE | 2018-05-19 10:56 | OBPP ---
Progress Note Assessment/Plan: Assessment: 1) s/p PPD #2 - pt is stable 2) h/o meth abuse - on Suboxone (home dose) 3) h/o anxiety/depression - pt on Wellbutrin and started on Ativan yesterday prn 4) Limited PNC - serum STD screening negative; Hep C viral load pending ( positive per RN) Subjective/ Course: Pain well controlled - home dose of Suboxone restarted yesterday 05/18 (28/07) Social work following - appreciate assistance on placement and resources; to see patient prior to d/c today Plan for discharge to [facility] later today Instructions reviewed with patient and written down Rx given for Fioricet and Ativan (only 10) until she gets into [facility] 05/27 Recommend she f/u with pp wellness center in our office this week; pt is to call and make an appointment Continue Motrin and stool softener as needed Pelvic rest and lifting restrictions given RTC in 4 weeks for mood check and 6 weeks for pp visit 05/19/18 11:13 Subjective/ Course: Sweta was quite upset and anxious, almost frantic when I spoke with her this AM. She reported that her pain was generally doing fine, baby was doing well - BF going well. She just in general was feeling very overwhelmed and anxious -- very worried about managing her anxiety in the coming weeks. Requesting Ativan PRN, and Fioricet. 05/19/18 11:05 Pt seen and examined. She is not feeling right and "feels as if her skin is crawling." At the same time, she can barely keep her eyes open. Mild cramping, that is relieved with Motrin. She passed a large clot this morning, but minimal bleeding now. She feels nauseated and vomited this am-states she "didn't keep down the Wellbutrin." She is voiding without difficulty and had a BM this am. She is ready to get back to [facility] and states she has support there. Baby may not be discharged home today secondary to feeding issues and elev bili levels. 05/19/18 11:11 Objective: 05/18/18 05:25 05/16/18 17:45 Patient ABO/Rh O POSITIVE 05/16/18 20:09 Uric Acid 5.3 mg/dL (2.5-6.8) 05/16/18 17:45 Total Bilirubin 0.1 mg/dL (0.1-1.4) 05/16/18 17:45 Conjugated Bilirubin 0.1 mg/dL (0.0-0.5) 05/16/18 17:45 Unconjugated Bilirubin 0.0 mg/dL (0.0-1.1) 05/16/18 17:45 AST 40 IU/L (14-46) 05/16/18 17:45 ALT 33 IU/L (9-52) 05/16/18 17:45 Lactate Dehydrogenase 697 IU/L (313-618) H 05/16/18 17:45 Temp Pulse Resp BP Pulse Ox 36.9 C 78 20 128/77 H 94 05/18/18 21:30 05/18/18 21:30 05/18/18 21:30 05/18/18 21:30 05/18/18 21:30 Uterine Position/Fundal Height: Umbilicus -2 Uterine Tone: Firm Physical Exam - Physical Exam General Appearance: WD/WN, alert, no apparent distress, anxiety Respiratory: lungs clear, normal breath sounds Cardiac/Chest: regular rate, rhythm Abdomen: normal bowel sounds, non-tender, soft, flatus Extremities: non-tender, normal inspection Skin: normal color, warm/dry Neuro/Psych: alert, normal mood/affect (very anxious), oriented x 3
--- NOTE | 2018-05-19 11:15 | OBGCSDC ---
General Delivery Information - General Info : 1 Para: 1 Abortions: 0 Type: Vaginal L&D Analgesia/Anesthesia Type: Epidural Admission Date: 05/16/18 Labs: Patient ABO/Rh O POSITIVE 05/16/18 20:09 Hct 37.8 % (38.0-47.0) L 05/18/18 05:25 Hep Bs Antigen NEGATIVE (NEGATIVE) 05/17/18 13:25 - Hospital Course Antepartum: Pt diagnosed with preeclampsia without severe features due to elevated BPs and proteinuria (P/C = 0.539). Induction started at 2200 on 05/16/18 with Cervidil. 05/17/18 - cervidil removed at 1000, 1415 SROM clear fluid 1615 transcervical balloon catheter removed 1635 IUPC placed, early FHR decelerations noted. 05/17/18 17:09 Intrapartum: 05/17/18 08:39 Pt doing well, was able to get some sleep, but is becoming agitated with discomfort of contractions. No LOF, no VB. Currently, no MIKE, epigastric pain, vis changes. 05/17/18 12:50 Pt much happier now, comfortable with epidural. NO MIKE, no vis changes, no epigastric pain. 05/17/18 17:06 Pt doing well, though having some high anxiety, as has a window of pain in LLQ currently not covered by epidural. Wants to try some guided meditation. 05/17/18 17:54 Pt feeling more pressure. overall better pain control. : Sweta was quite upset and anxious, almost frantic when I spoke with her this AM. She reported that her pain was generally doing fine, baby was doing well - BF going well. She just in general was feeling very overwhelmed and anxious -- very worried about managing her anxiety in the coming weeks. Requesting Ativan PRN, and Fioricet. 05/19/18 11:05 Pt seen and examined. She is not feeling right and "feels as if her skin is crawling." At the same time, she can barely keep her eyes open. Mild cramping, that is relieved with Motrin. She passed a large clot this morning, but minimal bleeding now. She feels nauseated and vomited this am-states she "didn't keep down the Wellbutrin." She is voiding without difficulty and had a BM this am. She is ready [facility] to [facility] and states she has support there. Baby may not be discharged home today secondary to feeding issues and elev bili levels. 05/19/18 11:11 Vaginal - Delivery Provider Delivery Physician/CNM: Caity Zavaleta - Diagnosis Labor: Induced Rupture of Membranes Type: Spontaneous Amniotic Fluid Color: Clear Laceration: 1st Degree Repair: 3-0, Vicryl Delivery Events: None - Procedures Non-surgical Procedures: IUPC, Other (Specify) (Transcervical Cook balloon catheter placed using a speculum and ring forceps in standard fashion. 60 ml in uterine balloon, 20 ml in vaginal balloon - pt tolerated procedure well. ) - Delivery Non-surgical Procedures: IUPC, Other (Specify) (Transcervical Cook balloon catheter placed using a speculum and ring forceps in standard fashion. 60 ml in uterine balloon, 20 ml in vaginal balloon - pt tolerated procedure well. ) EBL: 250 Data CHERYL: 05/28/18 Gestational Age: 38 week(s) and 5 day(s) Wagoner Delivery Date: 05/17/18 Delivery Time: 20:13 Sex of Infant: Male [place] Weight (gm): 2874 kg Score (1 Min): 8 Score (5 Min): 9 Discharge Information - Discharge Information Condition: Good Instruction/Follow Up: Four Weeks, Six Weeks
[2018-05-19 11:51] VITALS: BP 126/79
--- NOTE | 2018-05-19 13:21 | ASMTCMCOM ---
CM Note CM Note Notes: Patient chart reviewed. Status discussed with staff caring for [facility] and it is felt that she is exhibiting difficulty coping with caring for . She is easily frustrated with feeding and cries. Per chart records, the infant is showing signs and symptoms of withdrawal from barbiturates that were prescribed to MOC . Patient is current resident of [facility] here in [place] and has support there . The patient has been medically cleared for discharge however the infant is to remain hospitalized due to increasing bilirubin, withdrawal symptoms and feeding challenges. MOC seen by services and per and MOC breast feeding attempts and pumping will cease as it is anxiety provoking for the patient. Due to the above concerns and increasingly manic behavior exhibited by the patient, this author called CPS and spoke to Gisela Hernandez who took information regarding the case. CM is to notify CPS when the is ready for discharge to home. CM to follow. Plan: Dc to [facility] Date Signed: 05/19/2018 01:20 PM Electronically Signed By:Nicole Mccain RN
[2018-05-21 11:07] LABS: HCV QT RNA PCR < 1 IU/mL (<10)
--- NOTE | 2018-05-22 08:11 | SOAPPROG ---
SOAP Progress Note Assessment/Plan: Assessment: Post anesthesia note Plan: 05/22/18 08:09 Chart reviewed, no apparent anesthesia complications 05/22/18 08:10 Objective: Vital Signs Temp Pulse Resp BP Pulse Ox 36.1 C 72 20 126/79 H 96 05/19/18 08:00 05/19/18 08:00 05/19/18 08:00 05/19/18 08:00 05/19/18 08:00 Laboratory Results 05/18/18 05:25 05/16/18 17:45 ICD10 Worksheet Patient Problems: Problems Problem Status Onset Anxiety Acute Decreased movement Acute Preeclampsia Acute
== END 2018-05-19 16:00 | disposition home or self-care (01) | DRG 560 ==
LOC: FLD 16:49 → OBSVTOIN 19:25 → FOB 05-17 22:30
PROVIDERS: ADMIT Obstetrics & Gynecology; ATTEND Obstetrics & Gynecology
DX: O14.94 Unspecified pre-eclampsia, complicating childbirth (principal); O99.324 Drug use complicating childbirth; O98.42 Viral hepatitis complicating childbirth; O70.0 First degree perineal laceration during delivery; O99.344 Other mental disorders complicating childbirth; F11.21 Opioid dependence, in remission; B19.20 Unspecified viral hepatitis C without hepatic coma; F41.1 Generalized anxiety disorder; Z3A.38 38 weeks gestation of pregnancy; Z37.0 Single live birth; Z91.49 Other personal history of psychological trauma, not elsewhere classified
CPT/HCPCS: 80307; G0480; J0574; J2370; J2590; J3010; J3105

== ENCOUNTER 2018-05-23 21:12 | Observation (INO) | payer MEDICAID ==
[2018-05-23 22:08] LABS: PLATELET COUNT 342 10^3/uL (150-400)
[2018-05-23] MEDS ORDERED: LORazepam 2 MG/ML INJ IVP ONE (22:30)
[2018-05-23] MEDS ORDERED: LR 1,000 ML IV ONE (22:30)
[2018-05-23] MEDS ORDERED: ONDANSETRON 4 MG/2 ML VIAL IVP ONE (22:30)
[2018-05-23] MEDS ORDERED: ACETAMINOPHEN 500 MG TAB PO ONE (22:30)
[2018-05-23] MEDS ORDERED: LR 1,000 ML IV SCH (22:30)
[2018-05-23] MEDS ORDERED: KETOROLAC 30 MG/1 ML SDV IVP ONE (22:30)
== END 2018-05-24 00:57 | disposition home or self-care (01) ==
LOC: FLD 21:20
PROVIDERS: ADMIT Obstetrics & Gynecology; ATTEND Obstetrics & Gynecology
DX: O13.5 Gestational [pregnancy-induced] hypertension without significant proteinuria, complicating the puerperium (principal)
CPT/HCPCS: G0378 ×2; 80307; G0480; J1885; J2060; J2405

== ENCOUNTER 2018-06-10 16:03 | Emergency (ER) | payer MEDICAID ==
[2018-06-10] MEDS ORDERED: HALOPERIDOL LACT 5 MG/ML INJ IM ONE (16:25)
[2018-06-10] MEDS ORDERED: HALOPERIDOL LACT 5 MG/ML INJ ONE ×2 (16:25→20:30)
[2018-06-10] MEDS ORDERED: LORazepam 1 MG TAB ONE (16:34)
[2018-06-10] MEDS ORDERED: LORazepam 1 MG TAB PO ONE ×2 (16:34→18:08)
--- NOTE | 2018-06-10 16:40 | EDPHY ---
H & P Stated Complaint: Children taken away today, fresh cutting, poss drugs - Personal History Current Tetanus/Diphtheria Vaccine: Yes Tetanus Vaccine Date: 2017 - Medical/Surgical History Hx Asthma: No Hx Chronic Respiratory Disease: No Hx Diabetes: No Hx Cardiac Disease: No Hx Renal Disease: No Hx Cirrhosis: No Hx Alcoholism: No Hx HIV/AIDS: No Hx Splenectomy or Spleen Trauma: No Other PMH: Opiate recovery, Hep C, Depression, Anxiety - Social History Smoking Status: Current some day smoker Time Seen by Provider: 06/10/18 16:19 Constitutional: Initial Vital Signs Temperature (C) 37.2 C 06/10/18 16:08 Heart Rate 121 H 06/10/18 16:08 Respiratory Rate 18 06/10/18 16:08 Blood Pressure 72/35 L 06/10/18 16:08 O2 Sat (%) 93 06/10/18 16:08 O2 Delivery Mode Room Air Allergies/Adverse Reactions: No Known Allergies Allergy (Verified 06/10/18 16:07) Home Medications: Medication Instructions Recorded Phenergan 25 mg PO Q4H PRN 05/04/18 1 tab PO DAILY 05/04/18 Seroquel 25 mg pe PO HS PRN 05/04/18 Wellbutrin Sr 150 mg PO DAILY 05/04/18 Buprenorphine HCl 16 mg SL DAILY 05/18/18 Acet/Caffeine/Buta Fioricet 1 each PO Q6HRS PRN #10 tab 05/19/18 [Fioricet (*)] LORazepam [Ativan (*)] 0.5 mg PO Q6HRS PRN #10 tab 05/19/18 Medical Decision Making ED Course/Re-evaluation: CHIEF COMPLAINT: Erratic behavior HISTORY OF PRESENT ILLNESS: 28-year-old female whose child was just taken away from her a couple of hours ago by Child protective Services. She apparently has substance abuse issues. She took 2 Fioricet some Sudafed for her cold she claims and she is on Suboxone chronically. She is having an untoward reaction where she feels very shaky and very jittery and states this is never happened her before. She has also done some superficial cutting to her right volar forearm. She denies suicidality. She denies homicidality. REVIEW OF SYSTEMS: A comprehensive 10 system review of systems is otherwise negative aside from elements mentioned in the history of present illness and medical decision making. PHYSICAL EXAM: HR, BP, O2 Sat, RR. Temp noted General Appearance: Alert, well hydrated, appropriate, and non-toxic appearing. Although this patient initially was acting out she is very easy to talk down verbally. She is willing to cooperate with us regarding blood draw and urinalysis. She understands we are here to help her and I will give her 1 Ativan to help her relax a bit while awaiting for psychiatric evaluation and medical clearance. Head: Atraumatic without scalp tenderness or obvious injury Eyes: Pupils equal, round, reactive to light and accommodation, EOMI, no trauma , no injection. Ears: Clear bilaterally, no perforation, normal landmarks Nose: Atraumatic, no rhinorrhea, clear. Throat: There is no erythema or exudates, no lesions, normal tonsils, mucus membranes moist. Neck: Supple, 2+ carotid upstroke, nontender, no lymphadenopathy. Respiratory: No retractions, no distress, no wheezes, and no accessory muscle use. Lungs are clear to auscultation bilaterally. Cardiovascular: Regular rate and rhythm, no murmurs, rubs, or gallops. Bilateral carotid, radial, dorsalis pedis, and posterior tibial pulses intact. Good capillary refill all extremities. Gastrointestinal: Abdomen is soft, nontender, non-distended, no masses, no rebound, no guarding, no peritoneal signs. Musculoskeletal: Normal active ROM of all extremities, atraumatic. Neurological: Alert, appropriate, and interactive. The patient has normal DTRs and non-focal cranial nerves, motor, sensory, and cerebellar exam. Skin: Several superficial cuts left volar forearm No rashes, good turgor, no nodules on palpation. Past medical history: Psychiatric issues and substance abuse chronic opioid dependence Past surgical history: Noncontributory Family history: Noncontributory Social history: Single, unemployed, abuses drugs allegedly, does not use cigarettes, child was just removed as above DIFFERENTIAL DIAGNOSIS: The differential diagnosis for the patient's erratic behavior included but was not limited to functional and major depression, situational depression, medication side effect, drugs, and alcohol abuse. MEDICAL DECISION MAKING: I believe this patient is having an acute reactive event secondary to her child being removed secondary to her alleged narcotic abuse or other substance abuse. She did some superficial cutting of her left arm. She states she has never done anything like that before. She denies suicidality. She endorses taking 2 Fioricet Suboxone and some Sudafed today. She may have snorted Wellbutrin also it is unclear. There is a straw and some Wellbutrin in a baggy but there is no evidence that she actually snorted it. Laboratory studies are pending. I have given her 1 mg of Ativan. She will then be psychiatrically evaluated. I have put her on an [facility] UA positive for barbiturates, consistent with Fioricet. 1940 Patient reportedly became too agitated for evaluation. She tells me she was calm but that she wants to leave now. I explained she cannot leave without evaluation. Mental health states they cannot evaluate her at this time because she appears to be still under the influence of substances. UA is not positive for amphetamines. She states she did not take any Sudafed after 8pm last night. She admits to taking 600mg Gabapentin today around 10am. She remains somewhat disorganized and sleepy and the mental health team does not feel she is properly cleared for evaluation. I explained she may have to stay overnight, and she became quite distressed by this. I offered Trazodone for assistance in sleeping, but she declines this. Plan to administer 10mg IM Haldol for symptom relief. (Palmer Hollingsworth) 1:30 p.m.-this patient was seen by mental health and felt appropriate for outpatient treatment of depression. She denies suicidal ideation. I agree with this assessment. (Eri De Oliveira) Other Provider: [address] Hollingsworth pending mental health evaluation. 0700 patient sleeping overnight. Presenting with grave disability, increasing cutting. Symptoms after patient had her child taken by Child protective Services. She is positive for barbiturates but does take Fioricet. She did require Haldol for agitation. Patient signed out to Dr. De Oliveira pending mental health evaluation. (Sivakumar Ferraro) 7:00 a.m.-this patient presents with self cutting behavior and agitation after her child was taken away by Child Protective Services. Given Haldol for agitation during the agricultural economist. Plan for mental health evaluation this morning. (Eri De Oliveira) - Data Points Laboratory Results: Laboratory Results 06/10/18 16:45 06/10/18 16:45 Medications Given: Discontinued Medications Haloperidol Lactate (Haldol Injection) 10 mg IM EDNOW ONE Stop: 06/10/18 16:26 Last Admin: 06/10/18 19:05 Dose: Not Given Haloperidol Lactate (Haldol Injection) 10 mg IVP EDNOW ONE Stop: 06/10/18 20:31 Last Admin: 06/10/18 20:41 Dose: 10 mg Lorazepam (Ativan) 1 mg PO EDNOW ONE Stop: 06/10/18 16:35 Last Admin: 06/10/18 16:40 Dose: 1 mg Lorazepam (Ativan) 1 mg PO EDNOW ONE Stop: 06/10/18 18:09 Last Admin: 06/10/18 18:09 Dose: 1 mg Trazodone HCl (Trazodone) 50 mg PO EDNOW ONE Stop: 06/10/18 20:02 Last Admin: 06/10/18 20:11 Dose: Not Given Departure - Departure Disposition: Home, Routine, Self-Care Clinical Impression: Agitation, Deliberate self-cutting Condition: Good Instructions: Depression (ED), Anxiety (ED) Referrals: Gelacio Galarza MD [Medical Doctor] - As per Instructions
[2018-06-10 17:27] LABS: PLATELET COUNT 287 10^3/uL (150-400)
[2018-06-10] MEDS ORDERED: traZODone 50 MG TAB PO ONE (20:01)
[2018-06-10] MEDS ORDERED: HALOPERIDOL LACT 5 MG/ML INJ IVP ONE (20:30)
[2018-06-11 13:44] VITALS: BP 115/57
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
--- NOTE | 2018-06-11 15:19 | ASMTTCLDSP ---
TLC Discharge Disposition Disposition: Answers: Discharge If Answers: Yes DISCHARGED: Patient/family given suicide hotline info & SAMH[employer] brochure? Disposition Notes: Notes: Pt stated commitment or ability to keep self safe, denied thoughts of self harm or harm to others. Pt stated familiarity with [facility] and agreed to be cab transported to the [facility]. Pt was given local hotline information and [employer] brochure After an Attempt and encouraged to follow up with [facility]. Discharge Concerns/Recommendations: Notes: In consultation with [facility] ED physician, Eri De Oliveira MD, Dr. De Oliveira concurred that pt does not appear to meet 27-65 criteria requiring psychiatric hospitalization as pt does not appear to be an imminent risk of harm to self/others/gravely disabled due to a mental illness condition. Was patient given the Answers: Not applicable Inpatient Behavioral Health Prohibited Belongings List while in the ED? Date Signed: 06/11/2018 03:18 PM Electronically Signed By:Chico Hines
== END 2018-06-11 14:15 | disposition home or self-care (01) ==
DX: S50.812A Abrasion of left forearm, initial encounter (principal); R46.2 Strange and inexplicable behavior; X78.9XXA Intentional self-harm by unspecified sharp object, initial encounter; Y92.009 Unspecified place in unspecified non-institutional (private) residence as the place of occurrence of the external cause; Y99.9 Unspecified external cause status; Y93.9 Activity, unspecified
CPT/HCPCS: 80305; 96374; G0480; J1630

== ENCOUNTER 2018-09-06 21:04 | Emergency (ER) | payer MEDICAID ==
--- NOTE | 2018-09-06 22:14 | EDPHY ---
H & P Stated Complaint: Trouble swallowing, wisdom teeth removed 1wk ago, pain,"dry sockets" Time Seen by Provider: 09/06/18 22:09 HPI/ROS: HPI: This is a 28-year-old female who presents with Chief Complaint: Trouble swallowing, wisdom teeth removed 1wk ago, pain,"dry sockets" Location: Right lower tooth Quality: Pain Duration: Several days Signs and Symptoms: no fever, no nausea, no vomiting, no hematemesis, no blood in stool, no abdominal bloating, no diarrhea, no back pain, no urinary symptoms , no vaginal bleeding/discharge, no indigestion, no chest pain, no shortness of breath Timing: Acute, constant Severity: Moderate Context: Patient presents with 7 day history of right lower tooth greater than right upper to/left upper tooth/left lower tooth pain. She reports that she had her 4 wisdom teeth removed approximately 7 days ago by [facility]. Patient reports that she was given 3 days of pain medications and 7 days of Amoxicillin. She had minimal pain while she was taking the pain medications but went to work yesterday and today and feels like this may have made the pain return. She denies any fever, chills, nausea, vomiting. She complains of trouble swallowing and chewing her food. She reports compliance with amoxicillin. As it is [facility] , she is having difficulty getting up with her dentist. Modifying Factors: Amoxicillin and pain medication Comment: ROS: A comprehensive 10 system review of systems is otherwise negative aside from elements mentioned in the history of present illness. MEDICAL/SURGICAL/SOCIAL HISTORY: Medical history: Opiate recovery, Hep C, Depression, Anxiety Surgical history: wisdom teeth removal Social history: Employed. Drinks alcohol socially. Family history noncontributory. CONSTITUTIONAL: Well-developed, well-nourished, nontoxic-appearing white female , awake and alert, no obvious distress HEENT: Atraumatic and normocephalic, PERRL, EOMI. Nares patent; no rhinorrhea; no nasal mucosal edema. Tympanic membranes clear. Oropharynx clear, all sockets are moist with no eschar/scabbing/injured full inflammation. Uvula midline. no exudate and moist pink mucosa. Airway patent. Malocclusion. No lymphadenopathy. No meningismus. Cardiovascular: Normal S1/S2, regular rate, regular rhythm, without murmur rub or gallop. PULMONARY/CHEST: Symmetrical and nontender. Clear to auscultation bilaterally. Good air movement. No accessory muscle usage. ABDOMEN: Soft, nondistended, nontender, no rebound, no guarding, no peritoneal signs, no masses or organomegaly. No CVAT. EXTREMITIES: 2/2 pulses, strength 5/5, no deformities, no clubbing, no cyanosis or edema. NEUROLOGICAL: no focal neuro deficits. GCS 15. SKIN: Warm and dry, no erythema. no rash. Good capillary refill. Source: Patient Exam Limitations: No limitations - Personal History LMP (Females 10-55): Irregular Current Tetanus Diphtheria and Acellular Pertussis (TDAP): Yes Tetanus Vaccine Date: 2017 - Medical/Surgical History Hx Asthma: No Hx Chronic Respiratory Disease: No Hx Diabetes: No Hx Cardiac Disease: No Hx Renal Disease: No Hx Cirrhosis: No Hx Alcoholism: No Hx HIV/AIDS: No Hx Splenectomy or Spleen Trauma: No Other PMH: Opiate recovery, Hep C, Depression, Anxiety, wisdom teeth - Social History Smoking Status: Current some day smoker Constitutional: Initial Vital Signs Temperature (C) 37.0 C 09/06/18 21:16 Heart Rate 94 09/06/18 21:16 Respiratory Rate 18 09/06/18 21:16 Blood Pressure 119/76 09/06/18 21:16 O2 Sat (%) 97 09/06/18 21:16 O2 Delivery Mode Room Air Allergies/Adverse Reactions: No Known Allergies Allergy (Verified 06/10/18 16:07) Home Medications: Medication Instructions Recorded Phenergan 25 mg PO Q4H PRN 05/04/18 1 tab PO DAILY 05/04/18 Seroquel 25 mg pe PO HS PRN 05/04/18 Wellbutrin Sr 150 mg PO DAILY 05/04/18 Buprenorphine HCl 16 mg SL DAILY 05/18/18 Acet/Caffeine/Buta Fioricet 1 each PO Q6HRS PRN #10 tab 05/19/18 [Fioricet (*)] LORazepam [Ativan (*)] 0.5 mg PO Q6HRS PRN #10 tab 05/19/18 oxyCODONE/APAP 5/325 [Percocet 1 - 2 tab PO Q4H PRN #10 tab 09/06/18 5/325 (*)] Medical Decision Making ED Course/Re-evaluation: Vital signs reviewed and stable upon arrival. No systemic signs. Patient has no signs of facial cellulitis, periapical abscess, Vinny's angina, dry socket. Xeroform soaked in let topical placed with near complete relief Given Percocet prepack and prescription for same Patient is continue the amoxicillin and follow up with her dentist in the next 1 -2 days. This patient was seen under the supervision of my secondary supervising physician. I evaluated and cared for this patient with attending. Differential Diagnosis: Differential diagnosis includes but is not limited to tooth fracture, tooth subluxation, bleeding dental socket, acute alveolar osteomyelitis, ulcerative gingivitis, Vinny's angina, periapical abscess, peritonsillar abscess, Vincent' s angina Departure - Departure Disposition: Home, Routine, Self-Care Clinical Impression: Odontalgia, Post-operative pain Condition: Good Instructions: Toothache (ED) Additional Instructions: Follow up with your dentist in the next week. Eat a soft diet. Apply topical let cream as needed to the area of most discomfort. Swish and spit after every meal and at bedtime with dilute hydrogen peroxide; 50 /50 mixture of warm water and Hydrogen peroxide x 5 days. Take Tylenol 650 mg every 4 hr and/or ibuprofen 600 mg every 8 hr as needed for pain. Use Percocet every 6 hours as needed for severe/break through pain. Do not use Tylenol and Percocet concomitantly. Take antibiotic as directed. Do not miss any doses. Referrals: OTHER [facility] [place],. 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
[2018-09-06] MEDS ORDERED: OXYCODONE/APAP 5/325MG PREPACK#4 BTL TAKEHOME ONE (22:45)
[2018-09-06] MEDS ORDERED: LET GEL TOPICAL 1 EA SYR TP ONE (22:45)
[2018-09-06 23:15] VITALS: BP 123/79
== END 2018-09-06 23:14 | disposition home or self-care (01) ==
DX: K08.89 Other specified disorders of teeth and supporting structures (principal); Z98.818 Other dental procedure status